=== PATIENT | male | born 1965 | race Caucasian/White ===

== ENCOUNTER 2020-09-19 13:12 | Emergency (ER) | payer OTHER, SELFPAY ==
[2020-09-19 13:55] VITALS: BP 107/71; PULSE 77; RESP 18; TEMP 36.9; O2SAT 94; BMI 37.2
--- NOTE | 2020-09-19 13:59 | PC.NURSE ---
ambulates with stable sao2 95%
--- NOTE | 2020-09-19 14:04 | ED_ITS ---
HPI - URI/Sore Throat General Chief Complaint: Upper Respiratory Symptoms Stated Complaint: covid symptoms Time Seen by Provider: 09/19/20 14:04 Source: patient Mode of arrival: ambulatory Limitations: no limitations History of Present Illness HPI Narrative: Body aches, chills, myalgias for the past 2 days similar to his here for COVID testing. No chest pain or shortness of breath. No fever. MD elicited complaint: rhinorrhea Severity: moderate Able to tolerate fluids by mouth: Yes Exacerbating factors: nothing Relieving factors: nothing Associated symptoms: nasal congestion Treatments prior to arrival: none Related Data Allergies Allergy/AdvReac Type Severity Reaction Status Date / Time No Known Allergies Allergy Verified 09/19/20 13:54 [No Known Allergies*] Review of Systems Review of Systems: Constitutional: No Weight loss, No Fever, + Chills, No Night Sweats, No Fatigue, No Malaise ENT/Mouth: No Hearing loss, No Ear Pain, + Nasal Congestion, No Sinus Pain, No Hoarseness, No sore throat, No Swallowing Difficulty Eyes: No Eye Pain, No Swelling, No Redness, No Foreign Body, No Discharge, No Vision Changes Cardiovascular: No Chest Pain, No SOB, No Dyspnea on Exertion, No Orthopnea, No Edema, No Palpitations Respiratory: No Cough, No Sputum, No Wheezing, No Smoke Exposure, No Dyspnea Gastrointestinal: No Nausea, No Vomiting, No Diarrhea, No Constipation, No abdominal Pain, No Hematochezia, No Melena Genitourinary: No Dysuria, No Urinary Frequency, No Hematuria, No Urinary Incontinence, No Urgency, No Flank Pain, No Urinary Flow Changes Musculoskeletal: No joint pain, + Myalgias, No Joint Swelling Skin: No Skin Lesions, No rash Neuro: No Weakness, No Numbness, No Paresthesias, No Loss of Consciousness, No Dizziness, No Headache Psych: No Social Issues Heme/Lymph: No Bruising, No Bleeding,No Lymphadenopathy Endocrine: No Polyuria, No Polydipsia, No Temperature Intolerance Yes all other systems are reviewed and are negative [facility] Past Medical History Medical History (Updated 09/19/20 @ 14:06 by Shahid Eddy NP) HTN (hypertension) Social History Social History Advance Directives: No Advance Directives Information Provided: Yes Physical Exam Vital Signs: Vital Signs: Last Vital Signs Temp 98.5 F 09/19/20 13:55 Pulse 77 09/19/20 13:55 Resp 18 09/19/20 13:55 BP 107/71 09/19/20 13:55 Pulse Ox 94 09/19/20 13:55 Body Mass Index 37.2 Reviewed Const: General: cooperative and healthy appearing; No acute distress or intoxicated appearing Nutritional Appearance: average body habitus Orientation/consciousness: patient oriented x3 HENMT: Head: Yes normal to inspection Ears: hearing grossly normal bilaterally Eyes: General: appearance normal, both eyes and all related structures Visual Andrade: normal visual andrade by confrontation Neck: Neck: Yes normal visual inspection, No positive Brudzinski's sign, No positive Kernig's sign and No tender Thyroid: Thyroid normal Chest: Chest palpation & inspection: normal inspection of the chest Resp: Effort & Inspection: normal respiratory effort Cardio: Jugular venous distension: no JVD Rhythm: regular rhythm Heart sounds: S1 normal heart sound present and S2 normal heart sound present GI: Inspection: Yes normal to inspection Percussion: Yes normal to percussion Auscultation: normal bowel sounds : General: Yes no CVA tenderness Back/Spine/Pelvis: Back: no CVA tenderness Skin: General skin exam: no rashes or lesions noted Neuro: General: patient oriented x3 Extrem: General: Yes normal to inspection Course Course Course Narrative: Will nontoxic appearing. Afebrile. Hemodynamically stable. Discharge Plan Discharge Clinical Impression: Viral infection Patient Disposition: Home, Self-Care Instructions: Viral Syndrome (ED) Additional Instructions: Based on your symptoms and history we have sent a COVID-19. Although your RESULT IS PENDING at this time. RESULTS should return within 72 hours. At this time you will be contacted with either NEGATIVE OR POSITIVE results. -Please wait until we contact you for your results. At this time you will be okay for discharge. Please plan for self quarantine for up to 14 days. Do not expose yourself to others. You may not go to work. If testing does come back negative you may return to activities as long as you are no longer having any symptoms for at least 3 days. Please continue to follow cold instructions and wash your hands frequently. You may take Tylenol as directed on the bottle for pain or fever. Patient seen in the emergency department and should be excused from work until negative test results AND until 72 hours without any symptoms AND at least 10 days have passed since symptoms first appeared or since last exposure to COVID- 19 positive patient CDC Guidelines for home isolation: - Stay away from others - WEAR A MASK if you are sick AND STAY HOME - Cover your mouth and nose with a tissue when you cough or sneeze. Dispose of tissues in a lined trash can and wash your hands immediately with soap and water for at least 20 seconds. If soap and water are not available, clean hands with alcohol-based hand printed circuit boards beveler that contains at least 60% alcohol. - Clean your hands often with soap and water for at least 20 seconds - Avoid touching your eyes, nose and mouth with unwashed hands - Do not share dishes, drinking glasses, cups, eating utensils, towels, or bedding with other people in your home. After using these items, wash them thoroughly with soap and water or put in the medical record administrator. - Clean high-touch surfaces in your isolation area ( sick room and bathroom) every day; let a caregiver clean and disinfect high-touch surfaces in other areas of the home. Clean the area or item with soap and water or another detergent if it is dirty. Then, use a household disinfectant. - Limit contact with pets and animals: If you must care for a pet, wash your hands before and after interacting with them Referrals: Shirley Mayen MD [Primary Care Provider] - 2 weeks (Phone visit) Interventions: ED Discharge Assessment Last Done: 09/19/20 14:46 Discharge Date/Time: 09/19/20 14:51
== END 2020-09-19 14:51 | disposition home or self-care (01) ==
PROVIDERS: Nurse Practitioner Primary Care; Emergency Provider Emergency Medicine; PCP Pediatrics
DX: U07.1 COVID-19 (principal); I10 Essential (primary) hypertension
CPT/HCPCS: 99283; U0003